=== PATIENT | female | born 1980 | race Asian ===

== ENCOUNTER 2018-08-03 15:53 | Emergency (ER) | payer OTHER ==
[~2018-08-03] VITALS: Ht 160 cm; Wt 60.8 kg
[2018-08-03 16:08] VITALS: BP 134/80; Ht 160 cm; Wt 60.8 kg
== END 2018-08-03 18:30 | disposition home or self-care (01) ==
LOC: ED 15:53
DX: J11.1 Influenza due to unidentified influenza virus with other respiratory manifestations (principal)
CPT/HCPCS: 87804